=== PATIENT | male | born 1965 | race Caucasian/White ===

== ENCOUNTER 2016-04-19 16:31 | Emergency (ER) | payer BC ==
[2016-04-19 16:40] VITALS: BP 138/103
--- NOTE | 2016-04-19 17:05 | UC ---
Syncope/New Syncope HPI - HPI Summary HPI Summary: The patient comes in today for: 1. Lethargy, fever, dizziness/woozy, cough, nasal and chest congestion, syncope, very weak legs, like I could not move them Onset: 7 days ago. Palliative/provocative: Resting helps makes him fell better. Quality: No pain. Region: Lungs, sinuses. Severity: No pain, 0/10 Time: Constant. Associated symptoms: Lethargy: x 7 days. General, but legs more. Fever: Last week it was 103, but he has not taken it since. Dizziness/wozziness: "Sweating, clammy, generalized weakness, like I have a fever and a loss of balance." Cough: Productive of yellow material, no blood. Rhinitis: Yellow material. Syncope: 2 days ago, he walked from [employer] to his home ("10 minutes max"), and just before he go home, he felt like his legs were not working right- -he had to make a special effort to make them work. They felt heavy. This lasted about 2-3 minutes. He walked into his house. He fell as soon as he got in over the threshold, he fell over. He states that he had no actual fainting ( even though he suggested this initially). He remembers falling down and getting himself up. He then went to the kitchen to get something to eat. Then he laid down. Body aches: some in the legs. Sinus pressure: present, below the eyes. Flu vaccine: did not get. * - History Of Current Complaint Chief Complaint: UCRespiratory Stated Complaint: FEVER,COUGH Time Seen by Provider: 04/19/16 16:44 Hx Obtained From: Patient - Allergies/Home Medications Allergies/Adverse Reactions: Allergies Allergy/AdvReac Type Severity Reaction Status Date / Time Acetaminophen [From Tylenol] Allergy Hives Verified 04/19/16 16:40 Ibuprofen [From Motrin] Allergy Hives Verified 04/19/16 16:40 Penicillins Allergy Hives Verified 04/19/16 16:40 Home Medications: Home Medications Dextromethorphan HBr [Vicks Dayquil Cough] PRN 04/19/16 [History] Levothyroxine TAB* [Synthroid TAB*] 200 mcg PO DAILY 04/19/16 [History Confirmed 01/23/17] PMH/Surg Hx/FS Hx/Imm Hx Previously Healthy: No Endocrine History Of: Reports: Thyroid Disease Denies: Diabetes, Hyperthyroidism, Hypothyroidism, Dyslipidemia Cardiovascular History Of: Denies: Cardiac Disorders, Hypertension, Pacemaker/ICD, Myocardial Infarction , Congestive Heart Failure, Atrial Fibrillation, Deep Vein Thrombosis, Bleeding Disorders Respiratory History Of: Reports: Asthma Denies: COPD, Bronchitis, Pneumonia, Pulmonary Embolism GI/ History Of: Denies: Gastroesophageal Reflux, Ulcer, Gastrointestinal Bleed, Gall Bladder Disease, Kidney Stones, Diverticulitis, Renal Disease, Urosepsis Neurological History Of: Denies: TIA, CVA, Dementia, Seizures, Migraine Psychological History Of: Denies: Anxiety, Depression, Bipolar Disorder, Schizophrenia, Post Traumatic Stress Disorder Cancer History Of: Denies: Lung Cancer, Colorectal Cancer, Breast Cancer, Prostate Cancer, Cervical Cancer Other History Of: Negative For: HIV, Hepatitis B, Hepatitis C, Anticoagulant Therapy - Surgical History Surgical History: Yes Surgery Procedure, Year, and Place: MOLE REMOVAL, ORAL SURGERY - Family History Known Family History: Negative: Cardiac Disease, Hypertension - Social History Occupation: Employed Full-time Alcohol Use: None Substance Use Type: None Smoking Status (MU): Never Smoked Tobacco Review of Systems Constitutional: Negative Skin: Negative Eyes: Negative ENT: Nasal Discharge Respiratory: Cough Cardiovascular: Negative Gastrointestinal: Negative Genitourinary: Negative All Other Systems Reviewed And Are Negative: Yes Physical Exam Triage Information Reviewed: Yes Appearance: Well-Appearing, No Pain Distress, Well-Nourished Vital Signs: Initial Vital Signs Temp 99.0 F 04/19/16 16:36 Pulse 82 04/19/16 16:36 Resp 16 04/19/16 16:36 BP 138/103 04/19/16 16:36 Pulse Ox 98 04/19/16 16:36 Vital Signs Reviewed: Yes Eyes: Positive: Conjunctiva Clear. Negative: Discharge ENT: Positive: Hearing grossly normal. Negative: Pharyngeal erythema, Nasal congestion, Nasal drainage, TM bulging, TM dull, TM red, Tonsillar swelling, Tonsillar exudate Dental: Negative: Gross Decay/Caries @, Dental Fracture @ Neck: Positive: Supple, Nontender, No Lymphadenopathy. Negative: Nuchal Rigidity Respiratory: Positive: Lungs clear - There is no marked wheezing, but there is some tightness to his breathing--reduction in inspiration/expiration cycle., No respiratory distress, No accessory muscle use. Negative: Crackles, Wheezing Cardiovascular: Positive: RRR, No Murmur Abdomen Description: Positive: Nontender, No Organomegaly, Soft. Negative: Distended, Guarding Musculoskeletal: Negative: Strength Intact, ROM Intact Neurological: Positive: Alert, Muscle Tone Normal, Other: - Neurologic exam: Inspection: no fasciculations. Cranial nerves (II-XII): intact Muscular tone: appropriate and symmetrical. Reflexes: Biceps: 2+/2 x 2 Triceps: 2+/2 x 2 Brachioradialis: 2+/2 x 2 Patellar: 2+/2 x 2 Achilles: 2+/2 x 2 Coordination: Upper extremity: Alternating patting of thighs, alternating fingertips to thumb, index finger tip to nose--all normal. Lower extremity: Heel along tiwari--normal. Strength: Upper extremity: appropriate for age and symmetrical Lower extremity: appropriate for age and symmetrical Gait: Regular: Normal. Heel to toe: Normal. Rhomberg: Normal. Sensation: No complaint of numbness. Psychological: Positive: Age Appropriate Behavior, Consolable Skin: Negative: rashes, breakdown Syncope Course/Dx - Differential Dx/Diagnosis Provider Diagnoses: Viral syndrome. Bronchitis. Sinusitis Discharge - Discharge Plan Condition: Stable Disposition: HOME Patient Education Materials: Sinusitis (ED), Acute Bronchitis (ED), Viral Syndrome (ED) Referrals: Forrest Xie MD [Primary Care Provider] - 1 Week (Please see your primary care provider in a week to see how well you are doing. If you get worse, please be seen sooner in the ER or through us.)
== END 2016-04-19 17:45 | disposition home or self-care (01) ==
LOC: UCEAST 16:31
DX: B34.9 Viral infection, unspecified (principal); J20.8 Acute bronchitis due to other specified organisms; J01.80 Other acute sinusitis
CPT/HCPCS: 93005; 99212; G0463

== ENCOUNTER 2017-09-09 03:48 | Emergency (ER) | payer BC, OTHER ==
[2017-09-09] MEDS ORDERED: Lidocaine 2% VISCOUS* 15 ML UDC PO ONE (04:22)
[2017-09-09] MEDS ORDERED: Dexamethasone TAB* 6 MG PO ONE (04:23)
--- NOTE | 2017-09-09 05:43 | ED ---
H[facility] Marcus Elizabeth, scribed for Victor Manuel Abdalla MD on 09/09/17 at 0420 . Throat Pain/Nasal Congestion - HPI Summary HPI Summary: This patient is a 52 year old M presenting to [facility] with a chief complaint of throat pain since 1 month ago. The patient rates the pain 9/10 in severity. Symptoms aggravated by swallowing. Symptoms alleviated by nothing. Patient reports headache. Patient denies cough. - History of Current Complaint Chief Complaint: EDThroatPain Hx Obtained From: Patient Onset/Duration: Gradual Onset, Lasting Weeks - 1 month, Still Present Severity: Moderate Cough: None - Allergies/Home Medications Allergies/Adverse Reactions: Allergies Allergy/AdvReac Type Severity Reaction Status Date / Time acetaminophen [From Tylenol] Allergy Hives Verified 09/09/17 04:04 ibuprofen Allergy Hives Verified 09/09/17 04:04 Penicillins Allergy Hives Verified 09/09/17 04:04 PMH/Surg Hx/FS Hx/Imm Hx Endocrine/Hematology History: Reports: Hx Thyroid Disease Denies: Hx Anticoagulant Therapy, Hx Diabetes Cardiovascular History: Denies: Hx Congestive Heart Failure, Hx Deep Vein Thrombosis, Hx Hypertension , Hx Myocardial Infarction, Hx Pacemaker/ICD Respiratory History: Reports: Hx Asthma Denies: Hx Chronic Obstructive Pulmonary Disease (COPD), Hx Lung Cancer, Hx Pneumonia, Hx Pulmonary Embolism GI History: Denies: Hx Gall Bladder Disease, Hx Gastrointestinal Bleed, Hx Ulcer, Hx Urosepsis History: Denies: Hx Kidney Stones, Hx Renal Disease Neurological History: Denies: Hx Dementia, Hx Migraine, Hx Seizures, Hx Transient Ischemic Attacks (TIA) Psychiatric History: Denies: Hx Anxiety, Hx Depression, Hx Schizophrenia, Hx Bipolar Disorder - Surgical History Surgery Procedure, Year, and Place: MOLE REMOVAL, ORAL SURGERY Infectious Disease History: No Infectious Disease History: Reports: Hx Shingles Denies: Traveled Outside the [place] in Last 30 Days - Family History Known Family History: Negative: Cardiac Disease, Hypertension - Social History Alcohol Use: None Substance Use Type: Reports: None Smoking Status (MU): Former Smoker Review of Systems Negative: Fever Positive: Sore Throat. Negative: Nasal Discharge Negative: Cough Positive: Headache All Other Systems Reviewed And Are Negative: Yes Physical Exam - Summary Physical Exam Summary: Appearance: Well-appearing, no distress, Well-nourished Skin: Warm, color reflects adequate perfusion Head: Normal Head/Face inspection Eyes: Conjunctiva clear ENT: mild oropharyngeal erythema, no swelling, no exudates, no lymphadenophathy Neck: Supple, no nodes, no JVD. Respiratory: Lungs clear, Normal breath sounds, no respiratory distress Cardio: RRR, No murmur, pulses normal, brisk capillary refill Abdomen: soft, nontender, no guarding, no rebound Bowel sounds: present Musculoskeletal: Strength Intact/ ROM intact. No calf tenderness. No edema. Neuro: Alert, muscle tone normal, facial symmetry, speech normal, sensory/motor intact Psychological: Normal Triage Information Reviewed: Yes Vital Signs On Initial Exam: Initial Vitals Temp Pulse Resp BP Pulse Ox 97.2 F 95 18 142/100 95 09/09/17 03:50 09/09/17 03:50 09/09/17 03:50 09/09/17 03:50 09/09/17 03:50 Vital Signs Reviewed: Yes Diagnostics - Vital Signs Vital Signs Temp Pulse Resp BP Pulse Ox 09/09/17 03:50 97.2 F 95 18 142/100 95 - Laboratory Lab Results: Lab Results 09/09/17 Range/Units 04:17 Group A Strep Rapid Negative (Negative) Lab Statement: Any lab studies that have been ordered have been reviewed, and results considered in the medical decision making process. Re-Evaluation - Re-Evaluation First Eval Re-Evaluation Time: 04:54 Change: Improved - Pt throat pain improved with po analgesia. pt symptoms likely viral in nature. Plan for symptomatic tx with ENT f/u. EENT Course/Dx - Diagnoses Provider Diagnoses: Pharyngitis Discharge - Sign-Out/Discharge Documenting (check all that apply): Discharge/Admit/Transfer - Discharge Plan Condition: Stable Disposition: HOME Discharge Disposition Comment: discharge home Prescriptions: predniSONE TAB* [Deltasone 20 MG TAB*] 40 mg PO DAILY 5 Days #10 tab traMADol TAB* [Ultram*] 50 mg PO Q6HR PRN #12 tab MDD 200mg PRN Reason: Pain Patient Education Materials: Pharyngitis (ED) Referrals: Forrest Xie MD [Primary Care Provider] - Forrest Gardner MD [Medical Doctor] - 1 Day Additional Instructions: Follow up with Dr. Gardner, ENT specialist, in 1-2 days. Return to the emergency department with any new or worsening symptoms. The documentation as recorded by the [facility] benjamin Elizabeth accurately reflects the service I personally performed and the decisions made by , Victor Manuel Abdalla MD.
[2017-09-09 06:14] VITALS: BP 0/0
== END 2017-09-09 05:15 | disposition home or self-care (01) ==
LOC: ED 03:48
DX: J02.9 Acute pharyngitis, unspecified (principal); E07.9 Disorder of thyroid, unspecified; Z88.0 Allergy status to penicillin; Z88.8 Allergy status to other drugs, medicaments and biological substances; J45.909 Unspecified asthma, uncomplicated; Z87.891 Personal history of nicotine dependence; Z79.899 Other long term (current) drug therapy
CPT/HCPCS: 87651; 99282; A9270-GY